=== PATIENT | female | born 1980 | race Caucasian/White ===

== ENCOUNTER → 2016-06-04 | Outpatient (CLI) | payer BC ==
[~2016-06-04] MED LIST: PRENTAB26 PO
[2016-06-04 12:13] LABS: BASO % 0.3 %; BASO ABS # 0.02 K/uL (0-0.2); COMPLETE YES; EOS % 1.2 %; HEMATOCRIT 35.7 % (37-47); LYMPH % 23.4 %; LYMPH ABS # 1.62 K/uL (1.2-3.4); MEAN CELL VOLUME 83.6 fL (80-100); MEAN CORPUSCULAR HEMOGLOBIN 28.3 pg (25-34); MEAN CORPUSCULAR HGB CONC 33.9 g/dl (32-36); MEAN PLATELET VOLUME 10.5 fL (7.4-10.4); MONO % 6.6 %; NEUT % 68.5 %; PLATELET COUNT 210 K/uL (130-400); RED BLOOD COUNT 4.27 M/uL (4.2-5.4); WHITE BLOOD COUNT 6.92 K/uL (4.8-10.8)
[2016-06-04 14:10] LABS: GTGD 50 Grams
== END | disposition home or self-care (01) ==
LOC: C.LAB 10:07
PROVIDERS: ATTEND Obstetrics & Gynecology
DX: Z34.82 Encounter for supervision of other normal pregnancy, second trimester (principal)

== ENCOUNTER → 2016-09-17 | Day surgery (SDC) | payer BC ==
[~2016-09-17] VITALS: Ht 162.6 cm; Wt 70.0 kg
[2016-09-17 10:56] VITALS: BP 100/64; PULSE 100; TEMP 36.9; O2SAT 98; Ht 162.6 cm; Wt 70.0 kg
== END | disposition home or self-care (01) ==
LOC: C.MTU 10:41
PROVIDERS: ATTEND Obstetrics & Gynecology
DX: O36.0190 Maternal care for anti-D [Rh] antibodies, unspecified trimester, not applicable or unspecified (principal)

== ENCOUNTER → 2016-10-16 | Outpatient (CLI) | payer BC | END | disposition home or self-care (01) | LOC: C.LABSPEC 15:09 | PROVIDERS: ATTEND Obstetrics & Gynecology | DX: O09.513 Supervision of elderly primigravida, third trimester (principal); Z3A.00 Weeks of gestation of pregnancy not specified ==

== ENCOUNTER 2016-11-12 09:40 | Inpatient (IN) | payer BC ==
[~2016-11-12] VITALS: Ht 162.6 cm; Wt 71.8 kg
[2016-11-12] MEDS ORDERED: LACTATED RINGER'S 1000ML 1,000 ML IV PRN (12:20)
[2016-11-12] MEDS ORDERED: MISOPROSTOLTAB 50 MCG TAB PO ONE (12:30)
[2016-11-12 12:42] LABS: HEMATOCRIT 26.9 % (37-47); MEAN CELL VOLUME 75.6 fL (80-100); MEAN CORPUSCULAR HEMOGLOBIN 23.3 pg (25-34); MEAN CORPUSCULAR HGB CONC 30.9 g/dl (32-36); MEAN PLATELET VOLUME 9.6 fL (7.4-10.4); PLATELET COUNT 241 K/uL (130-400); RED BLOOD COUNT 3.56 M/uL (4.2-5.4); WHITE BLOOD COUNT 7.59 K/uL (4.8-10.8)
[2016-11-12] MEDS: LACTATED RINGER'S 1000ML 1,000 ML IV SCH ×2 (14:20→18:42)
[2016-11-12 15:12] VITALS: Ht 162.6 cm; Wt 71.8 kg
[2016-11-12] MEDS ORDERED: LACTATED RINGER'S 1000ML 500 ML IV PRN ×3 (17:40→18:46)
[2016-11-12] MEDS ORDERED: OXYTOCIN 30 UNITS/500ML NSS IV PRN ×3 (17:45→20:45)
[2016-11-12] MEDS ORDERED: BUPIVACAINE 0.25% 30 ML VIAL ONE (17:47)
[2016-11-12] MEDS ORDERED: EpHEDrine SULFATE INJ 50 MG/ML AMP ONE (17:47)
[2016-11-12] MEDS ORDERED: FENTANYL 2MCG/ML ROPIV 1.25MG/ML 100ML BAG EPI ONE (17:48)
[2016-11-12] MEDS ORDERED: FENTANYL CITRATE INJ 50 MCG/1 ML 2 ML VIAL ONE (17:48)
[2016-11-12] MEDS ORDERED: NALOXONE HCL INJ 1 MG in SODIUM CHLORIDE 0.9% 1000ML 1,000 ML IV PRN (18:46)
[2016-11-12] MEDS ORDERED: DiphenhydrAMINE HCL 50 MG/ML VIAL IV PRN (19:00)
[2016-11-12] MEDS ORDERED: EpHEDrine SULFATE INJ 50 MG/ML AMP IV PRN (19:00)
[2016-11-12] MEDS ORDERED: NALBUPHINE HCL INJ 10 MG/ML AMP IV PRN (19:00)
[2016-11-12] MEDS ORDERED: NALOXONE HCL INJ 0.4 MG/1 ML VIAL/CARP IV PRN (19:00)
[2016-11-12] MEDS ORDERED: FENTANYL 2MCG/ML ROPIV 1.25MG/ML 100ML BAG EPI PRN (19:00)
[2016-11-12] MEDS ORDERED: HYDROCORTISONE ACETATE 25 MG SUPP PR PRN (20:45)
[2016-11-12] MEDS ORDERED: BENZOCAINE 20% AER SPR 82.5 GM CAN EXT PRN (20:45)
[2016-11-12] MEDS ORDERED: ACETAMINOPHEN 325 MG TAB PO PRN (20:45)
[2016-11-12] MEDS ORDERED: OXYCODONE/ACETAMINOPHEN 5-325 TAB PO PRN (20:45)
[2016-11-12] MEDS ORDERED: LANOLIN OINT EXT PRN ×2 (20:45)
[2016-11-12] MEDS ORDERED: ACETAMINOPHEN/CODEINE 300/30MG TAB PO PRN ×2 (20:45)
[2016-11-12] MEDS ORDERED: SUPERCREAM 0.870 % 15GM JAR EXT PRN (20:45)
--- NOTE | 2016-11-12 22:30 | Anesthesia Procedure Note ---
Anesthesia Epidural Removal Nt Date & Time Nov 12, 2016 at 22:29 Vital Signs Pain Intensity: 0.0 Notes Mental Status: alert / awake / arousable, participated in evaluation Nausea / Vomiting: adequately controlled Pain: adequately controlled Airway Patency, RR, SpO2: stable & adequate BP & HR: stable & adequate Hydration State: stable & adequate Neuraxial Anesthesia: was administered Anesthetic Complications: no major complications apparent, pt satisfied with anesthetic care Epidural: removed without complications, with tip intact
[2016-11-12] MEDS: IBUPROFEN 600 MG TAB PO PRN (23:45)
[2016-11-13] VITALS (7 sets, daily range): BP systolic 89–115; BP diastolic 44–62; PULSE 50–71; TEMP 36.4–36.9; O2SAT 96–99
[2016-11-13 06:07] LABS: HEMATOCRIT 25.7 % (37-47)
[2016-11-13] MEDS: FERROUS SULFATE 325 MG TAB PO SCH (07:59)
[2016-11-13] MEDS: DOCUSATE SODIUM 100 MG CAP PO SCH ×2 (08:00→19:58)
[2016-11-13] MEDS: PRENATAL VITAMIN TAB PO SCH (08:00)
[2016-11-13] MEDS ORDERED: DIPHTHERIA/TETANUS/PERTUSSIS 0.5 ML SYR/VIAL IM. ONE (09:00)
--- NOTE | 2016-11-13 09:05 | Newborn Progress Note ---
Delivery Note Date of Service Nov 13, 2016. 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 Francis has a history of delivering a 9 lbs. 12 oz. infant. Due to prior history of macrosomia she was brought in for induction at 39+ weeks gestation. On admission to maternity she was placed on the monitor and subsequently given by mouth Cytotec 50 g. With this one dose of Cytotec she went into active labor. When she was about 5 cm dilated she requested received epidural anesthesia from which she obtained good pain relief. Following the epidural membranes were ruptured surgically fluid was clear. She went to full dilatation and pushed out a live female infant via right occiput posterior position with the child looking up at the time of delivery. was suctioned through the mouth and the nose. Cord blood was taken and then the cord was clamped. Placenta was removed intact with IV Pitocin running. Inspection of the perineum revealed a first-degree perineal laceration. This laceration was repaired with a running 2-0 Vicryl by approximating the vaginal mucosa out to beyond the hymenal ring. Ruptured sutures of 2-0 Vicryl were used to approximate the bulbocavernosus muscle and the perineal body. A running subcuticular suture of 2-0 Vicryl used to approximate the perineal skin edges. Following this edge exam including rectovaginal examination revealed no hematoma formation or sponges in the vagina. On estimation one and 5 minute Apgars were 8 and 9 respectively an estimated blood loss was about 200 mL.
--- NOTE | 2016-11-13 09:11 | Progress Note ---
Subjective Nov 13, 2016. Subjective conversation w/ patient Ambulation: ambulating normally Voiding: no voiding problems Passing Gas: Yes Diet Tolerance: Regular Diet Lochia: Small Feeding Type: Breast Feeding Review of Systems Constitutional: + fever Objective Vital Signs Date Time Temp Pulse Resp B/P (MAP) Pulse Ox O2 Delivery O2 Flow Rate FiO2 11/13/16 08:00 36.9 50 18 92/51 (65) Room Air 11/13/16 08:00 96 Room Air 11/13/16 03:30 36.4 57 16 97/49 (65) 96 Room Air 11/13/16 00:00 36.6 59 18 102/61 (75) 99 Room Air 11/13/16 00:00 99 Room Air Physical Exam General Appearance: WELL-APPEARING Respiratory/Chest: lungs clear Abdomen: non tender Fundus: Firm, Non-Tender Extremities: no pedal edema, no calf tenderness Laboratory Results Last 24 Hours Test 11/12/16 12:35 11/13/16 05:44 White Blood Count 7.59 K/uL Red Blood Count 3.56 M/uL Hemoglobin 8.3 g/dL 8.2 g/dL Hematocrit 26.9 % 25.7 % Mean Corpuscular Volume 75.6 fL Mean Corpuscular Hemoglobin 23.3 pg Mean Corpuscular Hemoglobin Concent 30.9 g/dl RDW Standard Deviation 41.5 fL RDW Coefficient of Variation 15.0 % Platelet Count 241 K/uL Mean Platelet Volume 9.6 fL Assessment and Plan Post- Day#: 1
[2016-11-13] MEDS: IBUPROFEN 600 MG TAB PO PRN ×2 (13:04→18:08)
[2016-11-13] MEDS ORDERED: BISACODYL 5 MG TABEC PO SCH (20:00)
[2016-11-14] MEDS ORDERED: BISACODYL 10 MG SUPP PR PRN (07:00)
[2016-11-14 07:10] VITALS: BP 107/67; PULSE 68; TEMP 36.8; O2SAT 97
[2016-11-14] MEDS: PRENATAL VITAMIN TAB PO SCH (08:11)
[2016-11-14] MEDS: DOCUSATE SODIUM 100 MG CAP PO SCH (08:11)
[2016-11-14] MEDS: FERROUS SULFATE 325 MG TAB PO SCH (08:11)
--- NOTE | 2016-11-14 08:19 | Progress Note ---
Subjective Nov 14, 2016. Subjective conversation w/ patient Ambulation: ambulating normally Voiding: no voiding problems Passing Gas: Yes Diet Tolerance: Regular Diet Lochia: Small Feeding Type: Breast Feeding Review of Systems Constitutional: + fever Objective Vital Signs Date Time Temp Pulse Resp B/P (MAP) Pulse Ox O2 Delivery O2 Flow Rate FiO2 11/14/16 07:10 36.8 68 20 107/67 (80) 97 Room Air 11/13/16 23:25 Room Air 11/13/16 23:25 36.9 69 18 94/58 (70) 97 Room Air 11/13/16 19:20 36.5 65 16 115/60 (78) Room Air 11/13/16 15:40 Room Air 11/13/16 15:40 36.7 71 16 99/62 (74) Room Air 11/13/16 11:30 36.7 64 18 89/44 (59) Room Air Physical Exam General Appearance: WELL-APPEARING Abdomen: non tender Fundus: Firm, Non-Tender Extremities: no pedal edema, no calf tenderness Assessment and Plan Post- Day#: 2
--- NOTE | 2016-11-14 08:21 | Discharge Instructions ---
Discharge Instructions Date of Service Nov 14, 2016. Admission Reason for Admission: Induction Discharge Discharge Diagnosis / Problem: history macrosomia Discharge Goals Goal(s): Routine recovery after delivery Activity Recommendations Activity Limitations: as noted below ACTIVITY RECOMMENDATIONS: * Gradual return to full activity over the next 2-3 weeks. * No lifting - nothing heavier than baby over the next 2-3 weeks. * Do not engage in vigorous exercise, sexual activity or sports until cleared by your physician. * Do not drive or operate any motorized equipment until cleared by your physician. * You may shower/bathe daily. DIET: Resume Previous Diet If Breast-feeding: * Increase caloric intake by 500 calories, eat 3 well balanced meals, 2 high protein snacks a day and drink 6-8 8oz. glasses of fluid per day. BREAST CARE: If you are not breast feeding: * Wear a supportive bra 24 hours a day for one to two weeks. * Avoid stimulating your breasts and nipples as much as possible during the first few weeks after delivery. * When taking a shower, have the warm water hit your back, not breasts. * When your breasts feel full, apply ice packs. Usually three to four times a day helps ease the discomfort. * Take a mild pain medication (Tylenol / Motrin) when you are uncomfortable. If breast feeding: * Use breast milk to lubricate nipples. Lansinoh cream may be used for sore nipples. You do not need to remove cream prior to breast feeding. If using a different brand of cream, check the label for directions regarding removal of cream prior to nursing. * Wear a supportive bra. * If having problems with breasts or breast feeding, call a sediment remediation consultant or your health care provider. OVER THE COUNTER MEDICATION: * For discomfort or pain, you may use Acetaminophen (Tylenol), Ibuprofen (Advil ), or Naproxen (Aleve) following the package directions. * For constipation you may use Colace following the package directions. SPECIAL CARE INSTRUCTIONS: * Vaginal rest (no tampons, douching, intercourse) until after doctor 's visit. * control as discussed with doctor. * Verbalizes understanding of car seat law as reviewed with patient nursing. * Car Seat hand-out given and reviewed with patient by nursing. * Shaken baby information reviewed with patient by nursing. Call you doctor if: * Temperature greater than or equal to 100.4 degrees F or 38.0 degrees C. Take your temperature twice daily for a week. * Bleeding becomes heavier than the heaviest part of your period - saturating a sanitary pad within an hour. * Passing large clots. * Bleeding has a foul smelling odor. * Signs and symptoms of phlebitis: leg pain, warm, red or swollen area on leg. * "Baby Blues" lasting longer than two weeks. ++ If you have had a and incision has increased pain, redness, swelling, presence of any drainage, or if the incision starts to open up. If you have any questions or concerns, call your health care practitioner at [phone]. FOLLOW-UP VISIT: Please call the office at to schedule a 6 week examination. . Current Hospital Diet Patient's current hospital diet: Regular Diet Discharge Diet Recommended Diet: Regular Diet Pending Studies Studies pending at discharge: no Medical Emergencies . Who to Call and When: Medical Emergencies: If at any time you feel your situation is an emergency, please call 911 immediately. . Non-Emergent Contact Non-Emergency issues call your: [employer] Coffee Attendant Call Non-Emergent contact if: temperature is above 100.5 . . "Provider Documentation" section prepared by Luis Antonio Turner. . VTE Core Measure Inpt VTE Proph given/why not?: Treatment not indicated
[2016-11-14 09:30] VITALS: BP_DIAS 67; PULSE 68; TEMP 36.8
== END 2016-11-14 11:52 | disposition home or self-care (01) | DRG 775 ==
LOC: C.LD 11:11 → C.OBG 23:41
PROVIDERS: ADMIT Obstetrics & Gynecology; ATTEND Obstetrics & Gynecology
PROC: 10E0XZZ Delivery of Products of Conception, External Approach (ICD-10-PCS; principal; 2016-11-12)
PROC: 0HQ9XZZ Repair Perineum Skin, External Approach (ICD-10-PCS; principal; 2016-11-12)
DX: O99.02 Anemia complicating childbirth (principal); D64.9 Anemia, unspecified; O70.0 First degree perineal laceration during delivery; O64.0XX0 Obstructed labor due to incomplete rotation of fetal head, not applicable or unspecified; Z3A.39 39 weeks gestation of pregnancy; Z37.0 Single live birth

== ENCOUNTER → 2016-12-25 | Outpatient (CLI) | payer BC | END | disposition home or self-care (01) | LOC: C.PAPS 16:19 | PROVIDERS: ATTEND Obstetrics & Gynecology | DX: Z39.2 Encounter for routine postpartum follow-up (principal) ==

== ENCOUNTER → 2017-01-09 | Outpatient (CLI) | payer BC ==
[2017-01-09 17:32] LABS: BASO % 0.6 %; BASO ABS # 0.03 K/uL (0-0.2); EOS % 2.3 %; HEMATOCRIT 36.3 % (37-47); IG% 0.2 %; LYMPH % 32.6 %; LYMPH ABS # 1.56 K/uL (1.2-3.4); MEAN CELL VOLUME 76.7 fL (80-100); MEAN CORPUSCULAR HEMOGLOBIN 24.9 pg (25-34); MEAN CORPUSCULAR HGB CONC 32.5 g/dl (32-36); MONO % 8.6 %; NEUT % 55.7 %; PLATELET COUNT 180 K/uL (130-400); RED BLOOD COUNT 4.73 M/uL (4.2-5.4); WHITE BLOOD COUNT 4.78 K/uL (4.8-10.8)
[2017-01-09 17:43] LABS: ALT/SGPT 35 U/L (12-78); AST/SGOT 18 U/L (15-37); BLOOD UREA NITROGEN 12 mg/dl (7-18); BUN/CREATININE RATIO 14.2 (10-20); CALCIUM 8.5 mg/dl (8.5-10.1); CARBON DIOXIDE 29 mmol/L (21-32); CHLORIDE 108 mmol/L (98-107); CHOLESTEROL 164 mg/dl (0-200); CREATININE 0.86 mg/dl (0.60-1.20); GLUCOSE 85 mg/dl (70-99); SODIUM 141 mmol/L (136-145); TRIGLYCERIDES 84 mg/dl (0-150); URIC ACID 5.2 mg/dl (2.6-7.2); VERY LOW DENSITY LIPOPROT CALC 17 mg/dl
[2017-01-09 17:51] LABS: ALKALINE PHOSPHATASE 72 U/L (45-117); CHOLESTEROL/HDL RATIO 2.2; HDL CHOLESTEROL 74 mg/dl; LDL CHOLESTEROL CALCULATED 73 mg/dl; TOTAL IRON BINDING CAPACITY 302 mcg/dl (250-450)
[2017-01-09 18:35] LABS: ANISOCYTOSIS PRESENT; COMPLETE YES; ECHINOCYTES 1+; POIKILOCYTOSIS PRESENT
[2017-01-10 06:59] LABS: ESTIMATED AVERAGE GLUCOSE 114 mg/dl; HA1C FLAG Normal (Normal)
== END | disposition home or self-care (01) ==
LOC: C.LABPVFM 14:04
PROVIDERS: ATTEND Family Medicine
DX: R73.09 Other abnormal glucose (principal); E55.9 Vitamin D deficiency, unspecified; D51.9 Vitamin B12 deficiency anemia, unspecified; E78.9 Disorder of lipoprotein metabolism, unspecified; R53.83 Other fatigue

== ENCOUNTER → 2017-04-06 | Outpatient (CLI) | payer BC ==
[2017-04-06 17:37] LABS: BASO % 0.6 %; BASO ABS # 0.03 K/uL (0-0.2); COMPLETE YES; EOS % 1.6 %; IG% 0.2 %; LYMPH % 26.5 %; LYMPH ABS # 1.35 K/uL (1.2-3.4); MEAN CELL VOLUME 85.7 fL (80-100); MEAN CORPUSCULAR HEMOGLOBIN 27.7 pg (25-34); MEAN CORPUSCULAR HGB CONC 32.3 g/dl (32-36); MEAN PLATELET VOLUME 11.9 fL (7.4-10.4); MONO % 8.6 %; NEUT % 62.5 %; PLATELET COUNT 228 K/uL (130-400); RED BLOOD COUNT 4.55 M/uL (4.2-5.4); WHITE BLOOD COUNT 5.09 K/uL (4.8-10.8)
[2017-04-06 18:24] LABS: TOTAL IRON BINDING CAPACITY 325 mcg/dl (250-450)
== END | disposition home or self-care (01) ==
LOC: C.LABPVFM 11:32
PROVIDERS: ATTEND Family Medicine
DX: R53.83 Other fatigue (principal)